=== PATIENT | male | born 1965 | race Caucasian/White ===

== ENCOUNTER 2016-08-28 22:20 | Emergency (ER) | payer SELFPAY ==
[~2016-08-28 22:20] MED LIST: PENI500T PO; TYLE3 PO; Z.0.NO CURRENT MEDS
[2016-08-28 22:23] VITALS: BP 138/65; PULSE 75; RESP 16; TEMP 98.5; O2SAT 96
[2016-08-28] MEDS ORDERED: CORTI10A LEFT EAR (23:01)
[2016-08-28] MEDS ORDERED: AMOX875T2 PO (23:01)
--- NOTE | 2016-08-29 00:57 | PD ---
HPI Chief Complaint: ENT Complaint Time Seen by Provider: 00:41 Travel History International Travel<30 days: No Contact w/Intl Traveler<30days: No Traveled to known affect area: No History of Present Illness HPI 50yo M with no PMH presents to the ED with c/o persistent left ear pain and ringing in his left ear for 2 weeks. States he went to [facility] and finished augmentin and was given polymyxin ear drops. Denies any fever, chest pain, sob, n/v, abdominal pain, focal weakness or numbness. PFSH Past Medical History Diminished Hearing: No Past Surgical History Appendectomy: Yes Social History Alcohol Use: No Tobacco Use: Yes (2 PPD) Substance Use: No Allergies-Medications (Allergen,Severity, Reaction): Coded Allergies: No Known Allergies (Verified , 08/28/16) Reported Meds & Prescriptions Reported Meds & Active Scripts Active Ibuprofen 600 Mg Tab 600 Mg PO Q8H PRN Clindamycin (Clindamycin HCl) 300 Mg Cap 300 Mg PO Q6H 7 Days Review of Systems Except as stated in HPI: all other systems reviewed are Neg Physical Exam Narrative GENERAL: 50yo M not in distress. SKIN: Focused skin assessment warm/dry. HEAD: Atraumatic. Normocephalic. EYES: Pupils equal and round. No scleral icterus. No injection or drainage. ENT: Left ear: + Yellow/whitish discharge in front of TM, unable to visualize TM. Some edema in ear canal. Mild ttp left mastoid. No erythema on mastoid. Right TM wnl. NECK: Trachea midline. No JVD. CARDIOVASCULAR: Regular rate and rhythm. No murmur appreciated. RESPIRATORY: No accessory muscle use. Clear to auscultation. Breath sounds equal bilaterally. GASTROINTESTINAL: Abdomen soft, non-tender, nondistended. MUSCULOSKELETAL: No obvious deformities. No clubbing. No cyanosis. No edema. NEUROLOGICAL: Awake and alert. No obvious cranial nerve deficits. Motor grossly within normal limits. Normal speech. PSYCHIATRIC: Appropriate mood and affect; insight and judgment normal. Data Data Last Documented VS Vital Signs Date Time Temp Pulse Resp B/P Pulse Ox O2 Delivery O2 Flow Rate FiO2 08/29/16 02:14 51 16 111/60 95 Room Air 08/28/16 22:[address] Brain W/O Iv Contrast(Rout) (08/29/16 ) Complete Blood Count With Diff (08/29/16 00:53) Ketorolac Inj (Toradol Inj) (08/29/16 01:00) Labs Laboratory Tests Test 08/29/16 01:49 White Blood Count 12.4 TH/MM3 Red Blood Count 4.94 MIL/MM3 Hemoglobin 14.4 GM/DL Hematocrit 41.4 % Mean Corpuscular Volume 83.8 FL Mean Corpuscular Hemoglobin 29.3 PG Mean Corpuscular Hemoglobin 34.9 % Concent Red Cell Distribution Width 13.9 % Platelet Count 233 TH/MM3 Mean Platelet Volume 7.3 FL Neutrophils (%) (Auto) 60.1 % Lymphocytes (%) (Auto) 31.1 % Monocytes (%) (Auto) 6.5 % Eosinophils (%) (Auto) 1.2 % Basophils (%) (Auto) 1.1 % Neutrophils # (Auto) 7.4 TH/MM3 Lymphocytes # (Auto) 3.8 TH/MM3 Monocytes # (Auto) 0.8 TH/MM3 Eosinophils # (Auto) 0.2 TH/MM3 Basophils # (Auto) 0.1 TH/MM3 CBC Comment DIFF FINAL Differential Comment MDM Medical Decision Making Medical Screen Exam Complete: Yes Emergency Medical Condition: Yes Interpretation(s) Laboratory Tests Test 08/29/16 01:49 White Blood Count 12.4 TH/MM3 (4.0-11.0) Red Blood Count 4.94 MIL/MM3 (4.50-5.90) Hemoglobin 14.4 GM/DL (13.0-17.0) Hematocrit 41.4 % (39.0-51.0) Mean Corpuscular Volume 83.8 FL (80.0-100.0) Mean Corpuscular Hemoglobin 29.3 PG (27.0-34.0) Mean Corpuscular Hemoglobin 34.9 % Concent (32.0-36.0) Red Cell Distribution Width 13.9 % (11.6-17.2) Platelet Count 233 TH/MM3 (150-450) Mean Platelet Volume 7.3 FL (7.0-11.0) Neutrophils (%) (Auto) 60.1 % (16.0-70.0) Lymphocytes (%) (Auto) 31.1 % (9.0-44.0) Monocytes (%) (Auto) 6.5 % (0.0-8.0) Eosinophils (%) (Auto) 1.2 % (0.0-4.0) Basophils (%) (Auto) 1.1 % (0.0-2.0) Neutrophils # (Auto) 7.4 TH/MM3 (1.8-7.7) Lymphocytes # (Auto) 3.8 TH/MM3 (1.0-4.8) Monocytes # (Auto) 0.8 TH/MM3 (0-0.9) Eosinophils # (Auto) 0.2 TH/MM3 (0-0.4) Basophils # (Auto) 0.1 TH/MM3 (0-0.2) CBC Comment DIFF FINAL Differential Comment Last Impressions Head CT 08/29/16 0000 Signed Impressions: Service Date/Time: , August 29, 2016 01:33 - CONCLUSION: Normal examination. There is fluid throughout the left mastoid air cells. Fluid in the middle ear canal. Sami Vaughan MD Differential Diagnosis Mastoiditis vs. otitis externa vs. otitis media vs. myringitis Narrative Course 50yo nontoxic male here with left ear pain and ringing in left ear for 2.5 weeks. Pt finished augmentin and still with no improvement. Pt has not seen ENT yet. Has some tenderness in left mastoid so CT brain ordered. CT brain showed normal exam. There is fluid throughout left mastoid air cells. Fluid in the middle ear canal. Labs reviewed, mild leukocytosis at 12.4. Pt given toradol which helped with the pain. States pain is there when he lies on left side. Will do mandatory referral to ENT. Pt is well appearing and has no fever and can tolerating PO. Return precautions given. Diagnosis Primary Impression: Chronic mastoiditis of left side Referrals: Darrian Forde MD call for appointment Exam concerning for mastoiditis Patient Instructions: General Instructions Departure Forms: Tests/Procedures Additional Instructions: I placed a mandatory referral for ENT so please wait for the gearcase assembler to call you for appointment to follow up with ENT. Return to the ED if symptoms worsen. Med/Other Pt SpecificInfo: Prescription(s) given Scripts Ibuprofen 600 Mg Hbq138 Mg PO Q8H PRN (PAIN) #20 TAB Ref 0 Prov:Neeru Malone DO 08/29/16 Clindamycin 300 Mg Dit332 Mg PO Q6H 7 Days Ref 0 Prov:Neeru Malone DO 08/29/16 Disposition: 01 DISCHARGE HOME Condition: Stable Neeru Malone DO Aug 29, 2016 00:57
[2016-08-29] MEDS ORDERED: KETOROLAC TROMETHAMINE 60 MG/2 ML (IM) VIAL IM ONE (01:00)
--- NOTE | 2016-08-29 01:46 | RADRPT ---
EXAM DATE/TIME: 08/29/2016 01:33 [facility] COMPARISON: No previous studies available for comparison. INDICATIONS : Left sided head and ear pain past 2 weeks. RADIATION DOSE: 36.03 CTDIvol (mGy) MEDICAL HISTORY : None SURGICAL HISTORY : None. ENCOUNTER: Initial ACUITY: 2 weeks PAIN SCALE: 8/10 LOCATION: Left cranial TECHNIQUE: Multiple contiguous axial images were obtained of the head. Using automated exposure control and adj ustment of the mA and/or kV according to patient size, radiation dose was kept as low as reasonably a chievable to obtain optimal diagnostic quality images. FINDINGS: CEREBRUM: The ventricles are normal for age. No evidence of midline shift, mass lesion, hemorrhage or acute in farction. No extra-axial fluid collections are seen. POSTERIOR FOSSA: The cerebellum and brainstem are intact. The 4th ventricle is midline. The cerebellopontine angle i s unremarkable. EXTRACRANIAL: The visualized portion of the orbits is intact. SKULL: The calvaria is intact. No evidence of skull fracture. There is fluid throughout the left mastoid ai r cells. Fluid in the middle ear canal. CONCLUSION: Normal examination. There is fluid throughout the left mastoid air cells. Fluid in the middle ear can al. Sami Vaughan MD on August 29, 2016 at 1:43 Board Certified Radiologist. This report was verified electronically.
[2016-08-29 02:00] LABS: AUTOMATED NEUTROPHIL # 7.4 TH/MM3 (1.8-7.7); BASOPHIL # 0.1 TH/MM3 (0-0.2); BASOPHIL % 1.1 % (0.0-2.0); EOSINOPHIL # 0.2 TH/MM3 (0-0.4); EOSINOPHIL % 1.2 % (0.0-4.0); HEMATOCRIT 41.4 % (39.0-51.0); HEMO FLAGS DIFF FINAL; LYMPH % 31.1 % (9.0-44.0); LYMPHOCYTE # 3.8 TH/MM3 (1.0-4.8); MEAN CELL VOLUME 83.8 FL (80.0-100.0); MEAN CORPUSCULAR HEMOGLOBIN 29.3 PG (27.0-34.0); MEAN CORPUSCULAR HGB CONC 34.9 % (32.0-36.0); MONO % 6.5 % (0.0-8.0); NEUT % 60.1 % (16.0-70.0); PLATELET COUNT 233 TH/MM3 (150-450); RED BLOOD COUNT 4.94 MIL/MM3 (4.50-5.90); RED CELL DISTRIBUTION WIDTH 13.9 % (11.6-17.2); WHITE BLOOD COUNT 12.4 TH/MM3 (4.0-11.0)
[2016-08-29 02:14] VITALS: BP 111/60; PULSE 51; RESP 16; O2SAT 95
[2016-08-29] MEDS ORDERED: IBUP-232 PO (03:19)
[2016-08-29] MEDS ORDERED: CLIN1CAP6 PO (03:19)
== END 2016-08-29 03:32 | disposition home or self-care (01) ==
LOC: NEPC 22:20
DX: H70.12 Chronic mastoiditis, left ear (principal); H93.12 Tinnitus, left ear; F17.210 Nicotine dependence, cigarettes, uncomplicated
CPT/HCPCS: 70450; 85025; 96372; 99284; J1885